=== PATIENT | male | born 1975 | race Caucasian/White ===

== ENCOUNTER → 2017-08-05 15:43 | Outpatient (CLI) | payer BC, SELFPAY ==
--- NOTE | 2017-08-05 15:49 | RAD_ITS ---
STUDY: X-RAY - RIGHT HAND REASON FOR EXAM: Male, 41 years old. Pain. Previous injury. TECHNIQUE: 3 view(s) of the hand. COMPARISON: None. FINDINGS: Normal radiocarpal articulation. Normal distal radioulnar joint. Normal visualized carpal bones. Normal carpal articulations Normal carpometacarpal articulation of the thumb. Normal second through fifth carpometacarpal joints. Normal metacarpi. Normal metacarpophalangeal joint of the thumb. Normal interphalangeal joint of the thumb. Normal proximal and distal phalanges of the thumb. Normal metacarpophalangeal joints of the second through fifth fingers. Normal proximal and distal interphalangeal joints of the second through fifth fingers. Normal phalanges of the second through fifth fingers. The soft tissue structures are unremarkable. RAD/Hand Min 3 Views IMPRESSION: Normal x-ray examination of the hand. Electronically Signed: Sanford Perdomo MD at 10:57 EDT , Service support ,
== END ==
PROVIDERS: Visit Provider Physician Assistant Surgical
DX: M79.641 Pain in right hand (principal); S69.91XA Unspecified injury of right wrist, hand and finger(s), initial encounter; X58.XXXA Exposure to other specified factors, initial encounter; Y93.9 Activity, unspecified; Y92.9 Unspecified place or not applicable; Y99.9 Unspecified external cause status
CPT/HCPCS: 73130

== ENCOUNTER → 2018-11-19 10:07 | Outpatient (CLI) | payer SELFPAY ==
[2018-11-18 08:39] VITALS: BMI 25.5
--- NOTE | 2018-11-19 10:10 | RAD_ITS ---
STUDY: X-RAY - UNILATERAL RIBS ( LEFT ) WITH CHEST REASON FOR EXAM: Male, 42 years old. Mid pain following a recent fall. TECHNIQUE - RIBS: 4 view(s) of the ribs. TECHNIQUE - CHEST: Single PA view of the chest. COMPARISON: Comparison is made with prior chest radiograph dated October 13, 2012. FINDINGS - RIBS: Normal visualized ribs without a demonstrated fracture. FINDINGS - CHEST: The lungs are clear and expanded. There is no demonstrated pleural abnormality. Normal size heart. Normal mediastinum and angie. Normal visualized pulmonary arteries. Normal visualized aortic arch and descending thoracic aorta. Normal visualized thoracic spine. Normal visualized ribs, clavicles, and shoulders. There is no demonstrated abnormality of the visualized soft tissue structures of the upper abdomen. RAD/Ribs Uni Min 3V w/PA Chest IMPRESSION: RIBS: Normal x-ray examination of the ribs. CHEST: Normal x-ray examination of the chest. Electronically Signed: Alexander Paez, at 11:27 EDT , Service support ,
== END ==
PROVIDERS: Referring Provider Physician Assistant; Visit Provider Physician Assistant
DX: S20.212A Contusion of left front wall of thorax, initial encounter (principal); X58.XXXA Exposure to other specified factors, initial encounter; Y93.9 Activity, unspecified; Y92.9 Unspecified place or not applicable; Y99.9 Unspecified external cause status
CPT/HCPCS: 71101

== ENCOUNTER 2021-01-20 12:59 | Emergency (ER) | payer OTHER, SELFPAY ==
[2021-01-20 13:00] VITALS: BP 124/77; PULSE 68; RESP 16; TEMP 36.9; O2SAT 98; BMI 24.3
--- NOTE | 2021-01-20 14:06 | RAD_ITS ---
STUDY: X-RAY - RIGHT KNEE REASON FOR EXAM: Right knee injury, laceration. TECHNIQUE: 4 view(s) of the knee. COMPARISON: None. FINDINGS: Normal visualized distal femur. Normal visualized proximal tibia and fibula. Normal proximal tibiofibular articulation. Normal medial femorotibial compartment. Normal lateral femorotibial compartment. Normal patellofemoral articulation. There is soft tissue swelling of the distal lateral thigh. RAD/Knee 4 or More Views IMPRESSION: Soft tissue swelling without demonstrated radiopaque foreign body. Electronically Signed: Andrew Stern MD at 14:34 EDT Tel , Service support ,
--- NOTE | 2021-01-20 14:18 | ED.VIS.LOWEX ---
HPI History of Present Illness Chief Complaint: Lower Extremity Injury Narrative Narrative: Patient presents with right knee laceration that happened yesterday evening he has some swelling in that region. Tetanus is not up-to-date. He has some pain and swelling proximally. No fever or chills no other injury. PFSH PFSH Home Medications cephalexin 500 mg PO Q6 #12 cap 01/20/21 [Rx Last Taken Unknown] Allergy/AdvReac Type Severity Reaction Status Date / Time No Known Allergies Allergy Unverified 01/20/21 12:42 Social History Smoking Status: Never smoker alcohol intake: never ROS ROS ED ROS Narrative Past medical history: none Medications: Reviewed Social history: Noncontributory Review of systems: Musculoskeletal: Leg pain and laceration Skin: As above Neurological: No weakness or paresthesias Hematologic: No easy bleeding or easy bruising EXAM Physical Exam Narrative Exam Narrative: Physical exam General: Patient does not appear in significant distress . Head: Normocephalic, Atraumatic Neck: No C-spine tenderness Cardiovascular: Normal distal pulses Back: Nontender, Normal Inspection. Extremities: Right lateral laceration about 1-1/2 cm it is above the meniscus that 3 cm. It seems to involve some of the lateral quadricep muscle. There is no tendon involvement there is no laxity on anterior posterior medial or lateral stressors, no effusion, normal extensor mechanism. No signs of infection. Skin: As above Neurological: Normal strength and sensation Const Vital Signs: 01/20/21 13:00 Temperature 98.4 F Temperature Source Temporal Pulse Rate 68 Respiratory Rate 16 Blood Pressure 124/77 H Blood Pressure Mean 92 Pulse Ox 98 Oxygen Delivery Method Room Air MDM MDM MDM Narrative Medical decision making narrative: Patient be treated prophylactically with antibiotics tetanus was updated. X-rays unremarkable. The wound is too old to suture. Radiography Diagnostic Testing: Radiology Impression Knee X-Ray 01/20/21 14:06 IMPRESSION: Soft tissue swelling without demonstrated radiopaque foreign body. Electronically Signed: Andrew Stern MD at 14:34 EDT Tel , Service support , Discharge Plan Triage Chief Complaint: Lower Extremity Injury ED Provider: Jose Ash Dx/Rx/DC Orders Clinical Impression: Laceration of leg Instructions: ED Laceration, Old: Not Sutured Prescriptions: New cephalexin 500 mg capsule 500 mg PO Q6 Qty: 12 RF: 0 Primary Care Provider: Care Physician,No Primary Referrals: Care Physician,No Primary [Primary Care Provider] - 3-5 Days Disposition Disposition: Home, Self Care
[2021-01-20] MEDS: Diphth,Pertuss(Acell),Tet Vac 0.5 ML Vial IM (14:51)
[2021-01-20] MEDS: Cephalexin 250 MG Capsule 500 MG PO (14:52)
== END 2021-01-20 15:20 | disposition home or self-care (01) ==
PROVIDERS: Emergency Provider Emergency Medicine
DX: S81.011A Laceration without foreign body, right knee, initial encounter (principal); X58.XXXA Exposure to other specified factors, initial encounter; Y93.9 Activity, unspecified; Y92.9 Unspecified place or not applicable; Y99.9 Unspecified external cause status
CPT/HCPCS: 90471; 73564; 90715; 99283